=== PATIENT | male | born 1950 | race Caucasian/White ===

== ENCOUNTER → 2024-12-30 08:05 | Outpatient (REF) | payer MEDICARE, OTHER, SELFPAY | LOC: RAD 08:05 | PROVIDERS: ATTENDING PHYSICIAN Internal Medicine Cardiovascular Disease; FAMILY PHYSICIAN Family Medicine | DX: R60.0 Localized edema (principal); R06.02 Shortness of breath; M79.606 Pain in leg, unspecified; I25.810 Atherosclerosis of coronary artery bypass graft(s) without angina pectoris; I10 Essential (primary) hypertension; E78.00 Pure hypercholesterolemia, unspecified; Z68.31 Body mass index [BMI] 31.0-31.9, adult; R09.89 Other specified symptoms and signs involving the circulatory and respiratory systems; R73.01 Impaired fasting glucose | CPT/HCPCS: 75574; Q9967 ==